=== PATIENT | female | born 1995 | race Hispanic/Latino ===

== ENCOUNTER 2018-03-02 18:09 | Emergency (ER) | payer SELFPAY ==
[2018-03-02 18:29] VITALS: BP 144/88; PULSE 84; RESP 17; TEMP 98; O2SAT 100
[2018-03-02] MEDS ORDERED: Lidocaine 2% Inj (20ml) INFIL ONE (19:18)
--- NOTE | 2018-03-02 19:24 | C.PDOC ---
History Of Present Illness 22 year old female presents to the ER with a complaint of left thumb swelling and pain for the past 4 days that is now radiating to the hand. Denies weakness , numbness, or fever. Time Seen by Provider: 03/02/18 18:34 Chief Complaint (Nursing): Finger,Hand,&Wrist History Per: Patient History/Exam Limitations: no limitations Onset/Duration Of Symptoms: Days Current Symptoms Are (Timing): Still Present Pain Scale Rating Of: 5 Exacerbating Factor(s): Worse At Night Recent travel outside of the [place]: No Past Medical History Reviewed: Historical Data, Nursing Documentation, Vital Signs Vital Signs: Last Vital Signs Temp 98 F 03/02/18 18:26 Pulse 84 03/02/18 18:26 Resp 17 03/02/18 18:26 BP 144/88 03/02/18 18:26 Pulse Ox 100 03/02/18 20:41 - Medical History PMH: No Chronic Diseases Surgical History: No Surg Hx Family History: States: Unknown Family Hx - Social History Hx Tobacco Use: Yes (1.5 packs daily) Hx Alcohol Use: No Hx Substance Use: No - Immunization History Hx Tetanus Toxoid Vaccination: No Hx Influenza Vaccination: No Hx Pneumococcal Vaccination: No Review Of Systems Constitutional: Negative for: Fever Musculoskeletal: Positive for: Hand Pain Skin: Negative for: Rash Neurological: Negative for: Weakness, Numbness Physical Exam - Physical Exam Appears: Non-toxic Skin: Normal Color, Warm, Dry, No Rash Head: Atraumatic, Normacephalic Eye(s): bilateral: Normal Inspection Extremity: Capillary Refill (<2 seconds), Other (Moderate swelling to nail fold and volar aspect of distal left thumb, + felon) Pulses: Left Radial: Normal, Right Radial: Normal Neurological/Psych: Oriented x3, Normal Speech, Normal Motor, Normal Sensation Gait: Steady ED Course And Treatment O2 Sat by Pulse Oximetry: 100 (Room air) Pulse Ox Interpretation: Normal - Incision & Drainage Of Abscess Anesthesia: Lidocaine 2% Prep Used: Sterile Water Procedure: Drained Pus, Irrigated Cavity W/Saline, Probed To Break Up Loculations, Cultures Obtained And Sent To Lab Medical Decision Making Medical Decision Making: Patient reports that she is smoker and had burned the finger pad which may have caused the infection. Digital block performed with 2% lidocaine, nail margin lifted to see if there is any pus with no success. Volar aspect of thumb aspirated with some purulent discharge, small incision made with little purulent material obtained, wound culture sent, antibiotics given. Patient was instructed to do warm soaks and compresses and return in 2 days for wound check as there may still be pus inside. Disposition - Disposition Referrals: [facility] [Outside] Disposition: HOME/ ROUTINE Disposition Time: 20:38 Condition: FAIR Additional Instructions: PUT THE FINGER IN WATER WATER TO SOAK FOR 5 MINUTES 4 TIMES PER DAY. RETURN TO THE ED IN 2 DAYS FOR WOUND CHECK. Prescriptions: Cephalexin [Keflex] 500 mg PO BID #19 capsule Ibuprofen [Motrin] 600 mg PO TID #21 tab Sulfamethoxazole/Trimethoprim [Bactrim DS 800 mg-160 mg] 1 tab PO BID #14 tab Instructions: Paronychia (DC) Forms: [employer] (Russian) - Clinical Impression Clinical Impression: Aravind - PA / SURGICAL TECHNOLOGY INSTRUCTOR / Resident Statement MD/DO has reviewed & agrees with the documentation as recorded. - Scribe Statement The provider has reviewed the documentation as recorded by the Scribsilvia Gary All medical record entries made by the Ingeibsilvia were at my direction and personally dictated by me. I have reviewed the chart and agree that the record accurately reflects my personal performance of the history, physical exam, medical decision making, and the department course for this patient. I have also personally directed, reviewed, and agree with the discharge instructions and disposition.
[2018-03-02] MEDS ORDERED: Lidocaine 2% MPF (5 ml) Inj ONE (19:27)
[2018-03-02] MEDS ORDERED: Tmp-Smz 800 mg-160 mg DS Tab PO STA (20:12)
[2018-03-02] MEDS ORDERED: Tmp-Smz 800 mg-160 mg DS Tab ONE (20:21)
== END 2018-03-02 20:46 | disposition home or self-care (01) ==
LOC: C.ER 18:09
DX: L03.012 Cellulitis of left finger (principal)